=== PATIENT | male | born 1960 | race African-American/Black ===

== ENCOUNTER 2018-01-14 18:03 | Inpatient (IN) | payer OTHER ==
[~2018-01-14] VITALS: Ht 175.3 cm; Wt 56.8 kg
--- NOTE | 2018-01-14 18:27 | Emergency Room Report ---
History of Present Illness General Chief Complaint: Dyspnea/Respdistress Source: Patient Present Illness HPI Patient is a 57-year-old male brought in by EMS after increased generalized weakness and shortness of breath. No gradual onset of symptoms. Patient prior history of diabetes. Patient had been noted having increased difficulty with respirations. Patient was started on supplemental oxygen by EMS. Patient had been noted to have a crack pipe near his person by EMS. History is limited by patient's mental status Allergies: Coded Allergies: No Known Allergies (Unverified , 01/14/18) Patient History Past Medical History: see triage record Reviewed Nursing Documentation: PMH: Agreed, PSxH: Agreed Nursing Documentation-PMH Past Medical History: No History, Except For Hx Diabetes: Yes Review of Systems All Other Systems: limited - by mental status Physical Exam Vital Signs Date Time Temp Pulse Resp B/P (MAP) Pulse Ox O2 Delivery O2 Flow Rate FiO2 01/14/18 17:52 98.1 78 18 149/86 95 Nasal Cannula 4.0 98.1 General Appearance: lethargic, Chronically Ill ENT: normal voice Neck: limited range of motion Respiratory: respiratory distress, crackles Cardiovascular #1: normal peripheral pulses, regular rate, rhythm, edema Gastrointestinal: normal bowel sounds, non tender, soft Musculoskeletal: normal inspection Neurologic: alert, oriented x3, radioisotope technologist III-XII nml as tested Procedures Critical Care Time Critical Care Time Patient had a critical medical condition which untreated could potentially result in life or limb threatening injury. Total critical care time excluding procedures approximately 45 minutes. Medical Decision Making Diagnostic Impression: Primary Impression: CHF exacerbation Additional Impressions: NSTEMI (non-ST elevated myocardial infarction) Substance abuse Pneumonia ER Course Patient presented with shortness of breath.Differential included but was not limited to anemia, pneumonia, pneumothorax, myocardial infarction, pericardial effusion, congestive heart failure, acidosis. Because of complexity of patient' s case laboratory testing and imaging studies were ordered.Chest x-ray 1 view interpreted by me showed multiple pulmonary infiltrates without evident effusion. A study showed evidence of Elevated troponin consistent with non-STEMI. Patient was given antibiotics. Patient was noted to have what appear to be congestive heart failure and fluid overload and was given IV Lasix. Dr. Leo was contacted for inpatient management due to complexity of medical condition. Labs Test 01/14/18 18:21 01/14/18 18:50 Arterial Blood pH 7.540 (7.350-7.450) Arterial Blood Partial Pressure CO2 39.2 mmHg (35.0-45.0) Arterial Blood Partial Pressure O2 102.4 mmHg (75.0-100.0) Arterial Blood HCO3 32.8 mmol/L (22.0-26.0) Arterial Blood Oxygen Saturation 97.5 % (92.0-98.0) Arterial Blood Base Excess 9.5 Kody Test Positive White Blood Count 9.5 K/UL (4.8-10.8) Red Blood Count 4.00 M/UL (4.70-6.10) Hemoglobin 12.2 G/DL (14.2-18.0) Hematocrit 36.5 % (42.0-52.0) Mean Corpuscular Volume 91 FL (80-99) Mean Corpuscular Hemoglobin 30.4 PG (27.0-31.0) Mean Corpuscular Hemoglobin Concent 33.2 G/DL (32.0-36.0) Red Cell Distribution Width 11.5 % (11.6-14.8) Platelet Count 308 K/UL (150-450) Mean Platelet Volume 7.6 FL (6.5-10.1) Neutrophils (%) (Auto) % (45.0-75.0) Lymphocytes (%) (Auto) % (20.0-45.0) Monocytes (%) (Auto) % (1.0-10.0) Eosinophils (%) (Auto) % (0.0-3.0) Basophils (%) (Auto) % (0.0-2.0) Differential Total Cells Counted 100 Neutrophils % (Manual) 72 % (45-75) Lymphocytes % (Manual) 8 % (20-45) Monocytes % (Manual) 7 % (1-10) Eosinophils % (Manual) 0 % (0-3) Basophils % (Manual) 0 % (0-2) Band Neutrophils 13 % (0-8) Platelet Estimate Adequate Platelet Morphology Normal Hypochromasia 1+ Anisocytosis 1+ Sodium Level 133 MMOL/L (136-145) Potassium Level 3.7 MMOL/L (3.5-5.1) Chloride Level 90 MMOL/L (98-107) Carbon Dioxide Level 36 MMOL/L (21-32) Anion Gap 7 mmol/L (5-15) Blood Urea Nitrogen 52 mg/dL (7-18) Creatinine 1.3 MG/DL (0.55-1.30) Estimat Glomerular Filtration Rate 57.1 mL/min (>60) Glucose Level 506 MG/DL (74-106) Lactic Acid Level 2.30 mmol/L (0.66-2.22) Calcium Level 9.1 MG/DL (8.5-10.1) Phosphorus Level 5.4 MG/DL (2.5-4.9) Magnesium Level 1.7 MG/DL (1.8-2.4) Total Bilirubin 0.8 MG/DL (0.2-1.0) Aspartate Amino Transf (AST/SGOT) 34 U/L (15-37) Alanine Aminotransferase (ALT/SGPT) 29 U/L (12-78) Alkaline Phosphatase 203 U/L (46-116) Total Creatine Kinase 148 U/L (26-308) Creatine Kinase MB 2.3 NG/ML (0.0-3.6) Creatine Kinase MB Relative Index 1.5 Troponin I 0.811 ng/mL (0.000-0.056) Pro-B-Type Natriuretic Peptide 4234 pg/mL (0-125) Total Protein 7.2 G/DL (6.4-8.2) Albumin 1.7 G/DL (3.4-5.0) Globulin 5.5 g/dL Albumin/Globulin Ratio 0.3 (1.0-2.7) EKG Diagnostic Results Rate: normal Rhythm: NSR ST Segments: no acute changes Rhythm Strip Diag. Results EP Interpretation: yes Rhythm: NSR, no PVC's, no ectopy, other Last Vital Signs Date Time Temp Pulse Resp B/P (MAP) Pulse Ox O2 Delivery O2 Flow Rate FiO2 01/14/18 17:52 98.1 78 18 149/86 95 Nasal Cannula 4.0 98.1 Status: unchanged Disposition: ADMITTED INPATIENT Condition: David Phan Jan 14, 2018 18:26
[2018-01-14 19:13] LABS: HEMATOCRIT 36.5 % (42.0-52.0); HEMOGLOBIN 12.2 G/DL (14.2-18.0); MEAN CORPUSCULAR VOLUME 91 FL (80-99); PLATELET COUNT 308 K/UL (150-450); RED CELL DISTRIBUTION WIDTH 11.5 % (11.6-14.8); WHITE BLOOD COUNT 9.5 K/UL (4.8-10.8)
[2018-01-14 19:15] VITALS: BP 156/98
[2018-01-14] MEDS ORDERED: Ampicillin/Sulbactam Sod 3 GM in NS 110 ML IVPB ONE (19:15)
[2018-01-14] MEDS ORDERED: Unasyn 3gm Inj ONE (19:39)
[2018-01-14 19:42] LABS: ALANINE AMINOTRANSFERASE 29 U/L (12-78); ALBUMIN 1.7 G/DL (3.4-5.0); ALBUMIN/GLOBULIN RATIO 0.3 (1.0-2.7); ALKALINE PHOSPHATASE 203 U/L (46-116); ANION GAP 7 mmol/L (5-15); ASPARTATE AMINO TRANSFERASE 34 U/L (15-37); BILIRUBIN,TOTAL 0.8 MG/DL (0.2-1.0); BLOOD UREA NITROGEN 52 mg/dL (7-18); CALCIUM 9.1 MG/DL (8.5-10.1); CARBON DIOXIDE 36 MMOL/L (21-32); CHLORIDE 90 MMOL/L (98-107); CKMB 2.3 NG/ML (0.0-3.6); CREATINE KINASE 148 U/L (26-308); CREATININE 1.3 MG/DL (0.55-1.30); PHOSPHORUS 5.4 MG/DL (2.5-4.9); POTASSIUM 3.7 MMOL/L (3.5-5.1); SODIUM 133 MMOL/L (136-145)
[2018-01-14 19:51] VITALS: BP 135/84
[2018-01-14] MEDS ORDERED: UNOBMED (20:44)
[2018-01-14] MEDS ORDERED: IBUPROFEN600 MG ORAL (21:13)
[2018-01-14] MEDS ORDERED: GABAPENTIN300 MG ORAL (21:13)
[2018-01-14] MEDS ORDERED: ZOCOR20 M1 ORAL (21:13)
[2018-01-14] MEDS ORDERED: BACLOFEN10 MG ORAL (21:13)
[2018-01-14] MEDS ORDERED: LISINOPRIL5 MG ORAL (21:13)
[2018-01-14] MEDS ORDERED: METFORMIN HCL1000 M1 ORAL (21:13)
[2018-01-14] MEDS ORDERED: Clindamycin 600mg 50 ML IVPB ONE (21:30)
[2018-01-14] MEDS: Aspirin EC 325mg tab ORAL SCH ×2 (21:39→22:10)
[2018-01-14 21:50] VITALS: BP 158/84
[2018-01-14 22:22] VITALS: BP 153/97
[2018-01-14 23:00] VITALS: BP 137/86
[2018-01-15] VITALS (24 sets, daily range): BP systolic 89–138; BP diastolic 50–84
[2018-01-15 05:12] LABS: APPEARANCE,URINE CLOUDY; BILIRUBIN, URINE 1+ (NEGATIVE); COLOR,URINE BROWN; GLUCOSE, URINE (UA) 4+ (NEGATIVE); KETONES,URINE 1+ (NEGATIVE); LEUKOCYTE ESTERASE ,URINE 1+ (NEGATIVE); NITRITE,URINE NEGATIVE (NEGATIVE); PH,URINE 5 (4.5-8.0); PROTEIN,URINE 2+ (NEGATIVE); UROBILINOGEN,URINE 4 MG/DL (0.0-1.0)
[2018-01-15 05:19] LABS: BASOPHILS % (AUTO) 0.5 % (0.0-2.0); HEMATOCRIT 31.4 % (42.0-52.0); HEMOGLOBIN 10.7 G/DL (14.2-18.0); LYMPHOCYTES % (AUTO) 8.9 % (20.0-45.0); MEAN CORPUSCULAR VOLUME 91 FL (80-99); MONOCYTES % (AUTO) 5.8 % (1.0-10.0); NEUTROPHILS % (AUTO) 84.8 % (45.0-75.0); PLATELET COUNT 270 K/UL (150-450); RED BLOOD COUNT 3.47 M/UL (4.70-6.10)
[2018-01-15 05:45] LABS: ANION GAP 7 mmol/L (5-15); BLOOD UREA NITROGEN 52 mg/dL (7-18); CALCIUM 8.7 MG/DL (8.5-10.1); CARBON DIOXIDE 38 MMOL/L (21-32); CHLORIDE 93 MMOL/L (98-107); CREATININE 1.1 MG/DL (0.55-1.30); POTASSIUM 2.9 MMOL/L (3.5-5.1); SODIUM 138 MMOL/L (136-145)
[2018-01-15] MEDS ORDERED: Albuterol/Ipratropium 3ml neb HHN PRN (06:30)
[2018-01-15] MEDS ORDERED: Morphine Sulfate 4mg/ml Inj IVP PRN (06:30)
[2018-01-15] MEDS ORDERED: Promethazine/Codeine 5ml UD ORAL PRN (06:30)
[2018-01-15] MEDS ORDERED: Miralax 17gm pkt ORAL PRN (06:30)
[2018-01-15] MEDS: NovoLOG Insulin Flexpen SUBQ SCH ×4 (06:40→20:25)
--- NOTE | 2018-01-15 07:40 | History and Physical ---
History of Present Illness General Date patient seen: Jan 15, 2018 Reason for Hospitalization: Dyspnea/Respdistress Present Illness HPI 57-year-old male with hx of DM brought in by EMS with CC of increased generalized weakness and shortness of breath. Patient was started on supplemental oxygen by EMS. Patient had been noted to have a crack pipe near his person by EMS. History is limited by patient's mental status. Pt was found to have increased Blood sugar. He was hypoxemic as well. He was put on BIPAP and admitted to ICU. Pt can't give any history and all information is obtained from the chart. Allergies: Coded Allergies: No Known Allergies (Unverified , 01/14/18) Medication History Scheduled Baclofen* (Baclofen*), 10 MG ORAL THREE TIMES A DAY, (Reported) Gabapentin* (Gabapentin*), 300 MG ORAL BEDTIME, (Reported) Lisinopril (Lisinopril*), 5 MG ORAL DAILY, (Reported) Metformin Hcl* (Metformin Hcl*), 1,000 MG ORAL DAILY, (Reported) Simvastatin (Zocor), 20 MG ORAL BEDTIME, (Reported) Scheduled PRN Ibuprofen* (Motrin*), 600 MG ORAL Q8H PRN for For Pain, (Reported) Miscellaneous Medications Unable to Obtain Medications (Unable To Obtain Meds), (Reported) Patient History Healthcare decision maker Resuscitation status Full Code Advanced Directive on File No Past Medical/Surgical History Past Medical/Surgical History: (1) Diabetes mellitus Review of Systems All Other Systems: negative except mentioned in HPI Physical Exam General Appearance: cachetic Lines, tubes and drains: peripheral HEENT: normocephalic, atraumatic Neck: non-tender, normal alignment Respiratory/Chest: chest wall non-tender, lungs clear Cardiovascular/Chest: normal peripheral pulses, normal rate Abdomen: normal bowel sounds, non tender Genitourinary/Rectal: normal genital exam Extremities: normal range of motion Skin Exam: normal pigmentation Neurologic: veterinary laboratory technician II-XII grossly normal Lymphatic: supraclavicular (L) Last 24 Hour Vital Signs Date Time Temp Pulse Resp B/P (MAP) Pulse Ox O2 Delivery O2 Flow Rate FiO2 01/15/18 07:16 55 01/15/18 07:00 89 26 97/63 100 Bi-pap 100 01/15/18 06:52 92 28 100 Facial 100 01/15/18 06:52 100 Bi-pap 100 01/15/18 06:00 90 26 96/61 100 Bi-pap 100 01/15/18 05:00 98.7 92 32 95/65 100 Bi-pap 100 98.7 01/15/18 05:00 91 21 100 Facial 100 01/15/18 04:00 93 30 94/67 100 Bi-pap 100 01/15/18 04:00 94 01/15/18 03:15 94 22 98 Facial 100 01/15/18 03:00 94 20 95/64 100 Bi-pap 100 01/15/18 02:00 99 20 138/84 100 Bi-pap 100 01/15/18 01:20 95 24 100 Facial 100 01/15/18 01:00 97.7 95 22 109/72 100 Bi-pap 100 97.7 01/15/18 00:01 99 24 98 Facial 100 01/15/18 00:00 97 24 105/65 100 Bi-pap 100 01/15/18 00:00 100 01/15/18 00:00 90 01/14/18 23:10 99 Venturi Mask 12.0 50 01/14/18 23:10 Venturi Mask 12.0 50 01/14/18 23:00 104 24 137/86 100 Non-Rebreather 15.0 01/14/18 22:52 98.0 99 24 153/97 100 Non-Rebreather 15.0 98.0 01/14/18 22:22 98.0 99 24 153/97 100 Non-Rebreather 15.0 98.0 01/14/18 21:50 98.1 100 22 158/84 100 Non-Rebreather 15.0 98.1 01/14/18 19:51 98.1 105 30 135/84 100 Non-Rebreather 15.0 98.1 01/14/18 19:15 105 30 156/98 100 Non-Rebreather 15.0 01/14/18 19:15 105 30 Non-Rebreather 15.0 01/14/18 17:52 98.1 78 18 149/86 95 Nasal Cannula 4.0 98.1 Intake and Output 01/14/18 01/15/18 19:00 07:00 Intake Total 160 ml Output Total 790 ml Balance -630 ml Intake Oral 0 ml IV Total 160 ml Other 0 ml Output Urine Total 790 ml Laboratory Tests Test 01/14/18 18:21 01/14/18 18:50 01/14/18 21:02 01/14/18 23:28 Arterial Blood pH 7.540 (7.350-7.450) 7.511 (7.350-7.450) Arterial Blood Partial Pressure CO2 39.2 mmHg (35.0-45.0) 46.7 mmHg (35.0-45.0) H Arterial Blood Partial Pressure O2 102.4 mmHg (75.0-100.0) H 63.0 mmHg (75.0-100.0) L Arterial Blood HCO3 32.8 mmol/L (22.0-26.0) H 36.5 mmol/L (22.0-26.0) H Arterial Blood Oxygen Saturation 97.5 % (92.0-98.0) 91.8 % (92.0-98.0) L Arterial Blood Base Excess 9.5 12.1 Kody Test Positive Positive White Blood Count 9.5 K/UL (4.8-10.8) Red Blood Count 4.00 M/UL (4.70-6.10) L Hemoglobin 12.2 G/DL (14.2-18.0) L Hematocrit 36.5 % (42.0-52.0) L Mean Corpuscular Volume 91 FL (80-99) Mean Corpuscular Hemoglobin 30.4 PG (27.0-31.0) Mean Corpuscular Hemoglobin Concent 33.2 G/DL (32.0-36.0) Red Cell Distribution Width 11.5 % (11.6-14.8) L Platelet Count 308 K/UL (150-450) Mean Platelet Volume 7.6 FL (6.5-10.1) Neutrophils (%) (Auto) % (45.0-75.0) Lymphocytes (%) (Auto) % (20.0-45.0) Monocytes (%) (Auto) % (1.0-10.0) Eosinophils (%) (Auto) % (0.0-3.0) Basophils (%) (Auto) % (0.0-2.0) Differential Total Cells Counted 100 Neutrophils % (Manual) 72 % (45-75) Lymphocytes % (Manual) 8 % (20-45) L Monocytes % (Manual) 7 % (1-10) Eosinophils % (Manual) 0 % (0-3) Basophils % (Manual) 0 % (0-2) Band Neutrophils 13 % (0-8) H Platelet Estimate Adequate Platelet Morphology Normal Hypochromasia 1+ Anisocytosis 1+ Sodium Level 133 MMOL/L (136-145) L Potassium Level 3.7 MMOL/L (3.5-5.1) Chloride Level 90 MMOL/L (98-107) L Carbon Dioxide Level 36 MMOL/L (21-32) H Anion Gap 7 mmol/L (5-15) Blood Urea Nitrogen 52 mg/dL (7-18) H Creatinine 1.3 MG/DL (0.55-1.30) Estimat Glomerular Filtration Rate 57.1 mL/min (>60) Glucose Level 506 MG/DL (74-106) *H Lactic Acid Level 2.30 mmol/L (0.66-2.22) H 2.10 mmol/L (0.66-2.22) Calcium Level 9.1 MG/DL (8.5-10.1) Phosphorus Level 5.4 MG/DL (2.5-4.9) H Magnesium Level 1.7 MG/DL (1.8-2.4) L Total Bilirubin 0.8 MG/DL (0.2-1.0) Aspartate Amino Transf (AST/SGOT) 34 U/L (15-37) Alanine Aminotransferase (ALT/SGPT) 29 U/L (12-78) Alkaline Phosphatase 203 U/L (46-116) H Total Creatine Kinase 148 U/L (26-308) Creatine Kinase MB 2.3 NG/ML (0.0-3.6) Creatine Kinase MB Relative Index 1.5 Troponin I 0.811 ng/mL (0.000-0.056) Pro-B-Type Natriuretic Peptide 4234 pg/mL (0-125) H Total Protein 7.2 G/DL (6.4-8.2) Albumin 1.7 G/DL (3.4-5.0) L Globulin 5.5 g/dL Albumin/Globulin Ratio 0.3 (1.0-2.7) L Test 01/15/18 02:50 01/15/18 03:15 01/15/18 04:00 Urine Color Brown Urine Appearance Cloudy Urine pH 5 (4.5-8.0) Urine Specific Cobb 1.020 (1.005-1.035) Urine Protein 2+ (NEGATIVE) H Urine Glucose (UA) 4+ (NEGATIVE) H Urine Ketones 1+ (NEGATIVE) H Urine Occult Blood 1+ (NEGATIVE) H Urine Nitrite Negative (NEGATIVE) Urine Bilirubin 1+ (NEGATIVE) H Urine Ictotest Negative Urine Urobilinogen 4 MG/DL (0.0-1.0) H Urine Leukocyte Esterase 1+ (NEGATIVE) H Urine RBC 2-4 /HPF (0 - 0) H Urine WBC 15-20 /HPF (0 - 0) H Urine Squamous Epithelial Cells Few /LPF (NONE/OCC) Urine Amorphous Sediment Few /LPF (NONE) H Urine Bacteria Few /HPF (NONE) Urine Hyaline Casts 15-20 /LPF (NONE) H Urine Mucus Many /LPF (NONE/OCC) H White Blood Count 10.0 K/UL (4.8-10.8) Red Blood Count 3.47 M/UL (4.70-6.10) L Hemoglobin 10.7 G/DL (14.2-18.0) L Hematocrit 31.4 % (42.0-52.0) L Mean Corpuscular Volume 91 FL (80-99) Mean Corpuscular Hemoglobin 30.8 PG (27.0-31.0) Mean Corpuscular Hemoglobin Concent 34.0 G/DL (32.0-36.0) Red Cell Distribution Width 11.0 % (11.6-14.8) L Platelet Count 270 K/UL (150-450) Mean Platelet Volume 7.5 FL (6.5-10.1) Neutrophils (%) (Auto) 84.8 % (45.0-75.0) H Lymphocytes (%) (Auto) 8.9 % (20.0-45.0) L Monocytes (%) (Auto) 5.8 % (1.0-10.0) Eosinophils (%) (Auto) 0.0 % (0.0-3.0) Basophils (%) (Auto) 0.5 % (0.0-2.0) Sodium Level 138 MMOL/L (136-145) Potassium Level 2.9 MMOL/L (3.5-5.1) L Chloride Level 93 MMOL/L (98-107) L Carbon Dioxide Level 38 MMOL/L (21-32) H Anion Gap 7 mmol/L (5-15) Blood Urea Nitrogen 52 mg/dL (7-18) H Creatinine 1.1 MG/DL (0.55-1.30) Estimat Glomerular Filtration Rate > 60 mL/min (>60) Glucose Level 312 MG/DL (74-106) #H Lactic Acid Level 4.40 mmol/L (0.66-2.22) H Calcium Level 8.7 MG/DL (8.5-10.1) Troponin I 0.499 ng/mL (0.000-0.056) Pro-B-Type Natriuretic Peptide 3479 pg/mL (0-125) H Arterial Blood pH 7.600 (7.350-7.450) Arterial Blood Partial Pressure CO2 37.7 mmHg (35.0-45.0) Arterial Blood Partial Pressure O2 243.5 mmHg (75.0-100.0) H Arterial Blood HCO3 36.5 mmol/L (22.0-26.0) H Arterial Blood Oxygen Saturation 99.1 % (92.0-98.0) H Arterial Blood Base Excess 14.0 Kody Test Positive Height (Feet): 5 Height (Inches): 9.00 Weight (Pounds): 123 Medications Current Medications Medications (Trade) Dose Ordered Sig/Ely Route PRN Reason Start Time Stop Time Status Last Admin Dose Admin Acetaminophen (Tylenol) 650 mg Q4H PRN ORAL FEVER 01/15/18 06:30 02/14/18 06:29 Albuterol/ Ipratropium (Albuterol/ Ipratropium) 3 ml Q4H PRN HHN Shortness of Breath 01/15/18 06:30 01/20/18 06:29 Aspirin (Ecotrin) 325 mg DAILY ORAL 01/14/18 21:30 02/13/18 21:29 01/14/18 21:39 Cefepime HCl 2 gm/ Dextrose 110 ml @ 220 mls/hr EVERY 12 HOURS IV 01/15/18 09:00 01/22/18 08:59 Dextrose (Dextrose 50%) STAT PRN IV Hypoglycemia 01/15/18 06:30 02/14/18 06:29 Heparin Sodium (Porcine) (Heparin 5000 units/ml) 5,000 units EVERY 12 HOURS SUBQ 01/15/18 09:00 02/14/18 08:59 Ibuprofen (Advil) 600 mg Q8H PRN ORAL For Pain 01/15/18 06:30 02/14/18 06:29 UNV Insulin Aspart (NovoLOG) BEFORE MEALS AND HS SUBQ 01/15/18 06:30 02/14/18 06:29 01/15/18 06:40 Lorazepam (Ativan 2mg/ml 1ml) 2 mg Q2H PRN IV For Anxiety 01/15/18 06:30 01/22/18 06:29 Morphine Sulfate (Morphine Sulfate) 4 mg Q4H PRN IVP Severe Pain (Pain Scale 7-10) 01/15/18 06:30 01/22/18 06:29 Ondansetron HCl (Zofran) 4 mg Q6H PRN IVP Nausea & Vomiting 01/15/18 06:30 02/14/18 06:29 Polyethylene Glycol (Miralax) 17 gm DAILYPRN PRN ORAL Constipation 01/15/18 06:30 02/14/18 06:29 Promethazine HCl/ Codeine (Phenergan with Codeine) 5 ml Q4H PRN ORAL For Cough 01/15/18 06:30 02/14/18 06:29 Sodium Chloride 1,000 ml @ 50 mls/hr Q20H IV 01/15/18 07:00 02/14/18 06:59 01/15/18 06:39 Vancomycin HCl (Vanco rx to dose) 1 ea DAILY PRN MISC per protocol 01/15/18 06:45 02/14/18 06:44 Vancomycin/Sodium Chloride 250 ml @ 166.636 mls/hr Q12HR IVPB 01/15/18 09:00 01/20/18 08:59 Vitamin A/Vitamin D (A & D Oint) 1 applic EVERY 12 HOURS TOPIC 01/15/18 09:00 02/14/18 08:59 UNV Assessment/Plan Problem List: (1) Acute respiratory failure ICD Codes: J96.00 - Acute respiratory failure, unspecified whether with hypoxia or hypercapnia SNOMED: 51599100 (2) Pneumonia ICD Codes: J18.9 - Pneumonia, unspecified organism SNOMED: 690372697 (3) Uncontrolled diabetes mellitus ICD Codes: E11.65 - Type 2 diabetes mellitus with hyperglycemia SNOMED: 74369417, 627845204 Assessment/Plan respiratory isolation check sputum ppd TB gold iv abx sliding scale neuro and ID evaluation dvt prophylaxis anemia w/u THANH LEVI Jan 15, 2018 07:40
--- NOTE | 2018-01-15 08:41 | Consultation ---
Consult Note Consult Note Patient is a 57-year-old male brought in by EMS after increased generalized weakness and shortness of breath. No gradual onset of symptoms. Patient prior history of diabetes. Patient had been noted having increased difficulty with respirations. Patient was started on supplemental oxygen by EMS. Patient had been noted to have a crack pipe near his person by EMS. History is limited by patient's mental status examined- data reviewed- discussed with quality control assistant/Plan Hypotension- Urinary retention Renal failure- Proteinuria Respiratory distress Pneumonia DMM OOC Anemia HypoAlbuminemia CHF elevated troponin I Optimize cardiac and pulm status 2D eco monitor renal parameters and lytes per orders MARLY KENNEDY Jan 15, 2018 08:41
[2018-01-15] MEDS ORDERED: PPD Tuberculin Skin Test 5TU IDERMAL ONE (09:00)
[2018-01-15] MEDS ORDERED: Aspirin EC 325mg tab ORAL SCH (09:00)
[2018-01-15] MEDS ORDERED: Vancomycin 750mg/NS 250ml 250 ML IVPB SCH (09:00)
[2018-01-15] MEDS: Vitamin A&D Oint 2oz Tube TOPIC SCH ×2 (09:30→20:22)
[2018-01-15] MEDS: Cefepime HCl 2 GM in NS 110 ML IV SCH ×2 (09:30→21:00)
[2018-01-15] MEDS: D5NS 1,000 ML IV SCH (09:45)
--- NOTE | 2018-01-15 09:47 | Diagnostic Imaging Report ---
Indication: Shortness of breath Technique: XRAY Chest 1v Comparison: None Findings: Cardiomediastinal silhouette is within normal limits. Atherosclerotic changes are seen. Patchy pulmonary infiltrates are noted bilaterally. Osseous structures demonstrate no acute abnormality. Impression: Patchy bilateral pulmonary infiltrates. Clinical correlation/follow-up recommended.
[2018-01-15] MEDS: Heparin 5000 units/ml inj SUBQ SCH ×2 (09:55→20:24)
[2018-01-15 10:04] LABS: HEMATOCRIT 32.1 % (42.0-52.0); HEMOGLOBIN 10.9 G/DL (14.2-18.0); MEAN CORPUSCULAR VOLUME 90 FL (80-99); PLATELET COUNT 255 K/UL (150-450); RED BLOOD COUNT 3.56 M/UL (4.70-6.10); RED CELL DISTRIBUTION WIDTH 11.3 % (11.6-14.8); WHITE BLOOD COUNT 10.3 K/UL (4.8-10.8)
--- NOTE | 2018-01-15 10:29 | Diagnostic Imaging Report ---
Indication: Shortness of breath Technique: XRAY Chest 1v Comparison: 01/14/2018 Findings: Cardiomediastinal silhouette is stable. Bilateral lung infiltrates are again noted. Osseous structures are stable. Impression: No significant change from 01/14/2018.
--- NOTE | 2018-01-15 19:32 | Consultation ---
Consult Note Consult Note [id number] A: pt was placed in Airborne Iso ro TB ( wt loss and ? Hx of TB Exposure in the past ) P: sputum : AFB x 3 , MTB -PCR T ANU Ramos M.D. Jan 15, 2018 19:31
[2018-01-15 20:20] LABS: ALANINE AMINOTRANSFERASE 28 U/L (12-78); ALBUMIN 1.6 G/DL (3.4-5.0); ALKALINE PHOSPHATASE 167 U/L (46-116); ASPARTATE AMINO TRANSFERASE 39 U/L (15-37); BILIRUBIN,DIRECT 0.2 MG/DL (0.0-0.3); BILIRUBIN,TOTAL 0.4 MG/DL (0.2-1.0)
[2018-01-15] MEDS: LORazepam Inj 2mg/ml 1ml IV PRN (20:22)
[2018-01-15] MEDS: Vancomycin 1gm in D5W 275ml IVPB SCH (20:25)
[2018-01-15] MEDS: Azithromycin 500 MG in D5W 275 ML IV SCH (21:00)
--- NOTE | 2018-01-15 22:45 | Consultation ---
DATE OF CONSULTATION: 01/15/2018 INFECTIOUS DISEASE CONSULTATION CONSULTING PHYSICIAN: Edmond Brink M.D. REFERRING PHYSICIAN: Ariana Leo M.D. REASON FOR CONSULTATION: Evaluation of the patient for sepsis, pneumonia, possible TB. HISTORY OF PRESENT ILLNESS: The patient is a 57-year-old male with multiple medical problems as listed below, who was admitted to this medical center because of general weakness, shortness of breath. The patient was found to have uncontrolled diabetes. The patient is poor historian and not the details of his condition is completely clear. Apparently, the patient is a drug user, who was brought to the hospital because of the weakness. The patient has history of weight loss. In the past, the patient has some sort of exposure to case of tuberculosis according to family, however, the patient himself denies that. The patient has been placed in isolation room for possible tuberculosis. An Infectious Disease consultation has been requested for further evaluation of the patient's antibiotic management. PAST MEDICAL HISTORY: 1. Hypertension. 2. Diabetes. 3. History of substance abuse (? if the patient is an IV drug abuser). 4. History of CHF. ALLERGIES: No known drug allergies. SOCIAL HISTORY: The patient from time to time is homeless. The patient is drug abuser. FAMILY HISTORY: Not contributing. MEDICATIONS: Vancomycin and cefepime. PHYSICAL EXAMINATION: VITAL SIGNS: Temperature 98, respiratory rate 18, blood pressure 113/70, pulse 86. HEENT: Mouth, no thrush. NECK: No lymphadenopathy. CHEST: Coarse breathing sounds. HEART: S1, S2. ABDOMEN: Soft, nontender. EXTREMITIES: No cyanosis at this time. NEUROLOGIC: Awake and lethargic. SKIN: The patient has multiple decubitus in the lower back, sacral area, not grossly infected. MEDICATIONS: On cefepime and vancomycin. LABORATORY DATA: White blood cells 10, hemoglobin 10.9, platelets 255,000. UA, 15 to 20 white blood cells and 2 to 4 red blood cells. Lactic acid 2.7. CRP over 70. BUN 52, creatinine 1.2. Troponin 0.49. BNP 3479. Alkaline phosphatase 203. Chest x-ray, cardiomegaly and bilateral lung infiltrates. ASSESSMENT: 1. The patient is a 57-year-old male with history of drug abuse. 2. Uncontrolled diabetes. 3. Weight loss. 4. Rule out HIV. 5. Sepsis. 6. Lactic acidosis. 7. Transaminitis. 8. Positive cardiac enzymes. 9. Community-acquired pneumonia 10. ? TB ( weight loss , history of TB exposure in the past , was placed in Isolation by PCP ) PLAN: 1. We will continue the patient on vancomycin and cefepime. 2. We will add Zithromax. 3. Monitor CBC. 4. Monitor BMP. 5. Monitor sputum, blood, and urine culture. 6. Ultrasound of the abdomen. 7. Hepatitis C panel. 8. HIV screening. 9. Based on the patient's clinical course and laboratories, we will do further recommendations. 10. sputum : AFB x 3 , MTB -PCR and T Spot Thank you, Dr. Leo, for allowing me to participate in the care of this patient. I will follow the patient with you during this hospitalization. Edmond Brink M.D. DR: Angel JOB#: [id number] CC: CINTIA
--- NOTE | 2018-01-15 23:14 | Wound Care Consultation ---
Wound Assessment Wound Assessment #1: Wound Number: 1 Wound Present on Admission: Yes New Wound: No Status Change of Wound: No Wound Location Body Site: perineal area Wound Type: chemical burn Burt Test: Does not Burt Percent of Wound [place]/Red: 100 Wound Drainage Amount: None Wound Drainage Odor: None/Absent Tissue Surrounding Wound: Erythemic Wound General Appearance: Reddened Wound Assessment #2: Wound Number: 2 Wound Present on Admission: Yes New Wound: No Status Change of Wound: No Wound Location Body Site Modif: left Wound Location Body Site: ischial tuberosity Wound Type: pressure ulcer Burt Test: Does not Burt Pressure Ulcer Stage: Deep Tissue Injury Wound Thickness: Full Thickness Wound Length: 4.0 Wound Width: 4.0 Wound Depth: utd Percent of Wound Purple/Maroon: 100 Wound Drainage Amount: None Wound Drainage Odor: None/Absent Tissue Surrounding Wound: Intact Wound General Appearance: Reddened - maroon Wound Assessment #3: Wound Number: 3 Wound Present on Admission: Yes New Wound: No Status Change of Wound: No Wound Location Body Site Modif: right Wound Location Body Site: ischial tuberosity Wound Type: pressure ulcer Burt Test: Does not Burt Pressure Ulcer Stage: Deep Tissue Injury Wound Thickness: Full Thickness Wound Length: 4.0 Wound Width: 4.0 Wound Depth: utd Percent of Wound Purple/Maroon: 100 Wound Drainage Amount: None Wound Drainage Odor: None/Absent Tissue Surrounding Wound: Erythemic Wound General Appearance: Reddened - maroon Wound Assessment #4: Wound Number: 4 Wound Present on Admission: Yes New Wound: No Status Change of Wound: No Wound Location Body Site Modif: mid Wound Location Body Site: other - sacrococcygeal Wound Type: pressure ulcer Burt Test: Does not Burt Pressure Ulcer Stage: Deep Tissue Injury Wound Thickness: Full Thickness Wound Length: 5.5 Wound Width: 5.5 Wound Depth: utd Percent of Wound Purple/Maroon: 100 Wound Drainage Amount: None Wound Drainage Odor: None/Absent Tissue Surrounding Wound: Erythemic Wound General Appearance: Reddened - maroon Wound Assessment #5: Wound Number: 5 Wound Present on Admission: Yes New Wound: No Status Change of Wound: No Wound Location Body Site Modif: left Wound Location Body Site: buttocks Wound Type: pressure ulcer Burt Test: Does not Burt Pressure Ulcer Stage: Deep Tissue Injury Wound Thickness: Full Thickness Wound Length: 3.5 Wound Width: 3.5 Wound Depth: utd Percent of Wound Purple/Maroon: 100 Wound Drainage Amount: None Wound Drainage Odor: None/Absent Tissue Surrounding Wound: Intact Wound General Appearance: Reddened - maroon Wound Assessment #6: Wound Number: 6 Wound Present on Admission: Yes New Wound: No Status Change of Wound: No Wound Location Body Site Modif: right Wound Location Body Site: buttocks Wound Type: pressure ulcer Burt Test: Does not Burt Pressure Ulcer Stage: Deep Tissue Injury Wound Thickness: Full Thickness Wound Length: 3.5 Wound Width: 3.5 Wound Depth: utd Percent of Wound Purple/Maroon: 100 Wound Drainage Amount: None Wound Drainage Odor: None/Absent Tissue Surrounding Wound: Erythemic Wound General Appearance: Reddened - maroon Wound Assessment #7: Wound Number: 7 Wound Present on Admission: Yes New Wound: No Status Change of Wound: No Wound Location Body Site Modif: right Wound Location Body Site: elbow Wound Type: pressure ulcer Burt Test: Does not Burt Pressure Ulcer Stage: Deep Tissue Injury Wound Thickness: Full Thickness Wound Length: 4.0 Wound Width: 3.0 Wound Depth: utd Percent of Wound Purple/Maroon: 100 Wound Drainage Amount: None Wound Drainage Odor: None/Absent Tissue Surrounding Wound: Intact Wound General Appearance: Reddened - maroon Wound Assessment #8: Wound Number: 8 Wound Present on Admission: Yes New Wound: No Status Change of Wound: No Wound Location Body Site Modif: left Wound Location Body Site: elbow Wound Type: pressure ulcer Burt Test: Does not Burt Pressure Ulcer Stage: Deep Tissue Injury Wound Thickness: Full Thickness Wound Length: 4.0 Wound Width: 3.0 Wound Depth: utd Percent of Wound Purple/Maroon: 100 Wound Drainage Amount: None Wound Drainage Odor: None/Absent Tissue Surrounding Wound: Erythemic Wound General Appearance: Reddened - maroon Wound Assessment #9: Wound Number: 9 Wound Present on Admission: Yes New Wound: No Status Change of Wound: No Wound Location Body Site Modif: right Wound Location Body Site: heel Wound Type: pressure ulcer Burt Test: Does not Burt Pressure Ulcer Stage: Deep Tissue Injury - SDTI Wound Thickness: Full Thickness Wound Length: 4.5 Wound Width: 3.0 Wound Depth: utd Percent of Wound [place]/Red: 100 - DEEP Wound Drainage Amount: None Wound Drainage Odor: None/Absent Tissue Surrounding Wound: Erythemic Wound General Appearance: Reddened - DEEP red Wound Assessment #10: Wound Number: 10 Wound Present on Admission: Yes New Wound: No Status Change of Wound: No Wound Location Body Site Modif: mid Wound Location Body Site: thoracic spine Wound Type: pressure ulcer Burt Test: Does not Burt Pressure Ulcer Stage: Deep Tissue Injury Wound Thickness: Full Thickness Wound Length: 5.0 Wound Width: 2.0 Wound Depth: utd Percent of Wound Purple/Maroon: 100 Wound Drainage Amount: None Wound Drainage Odor: None/Absent Tissue Surrounding Wound: Erythemic Wound General Appearance: Reddened - maroon Wound Assessment #11: Wound Number: 11 Wound Present on Admission: Yes New Wound: No Status Change of Wound: No Wound Location Body Site Modif: left, lateral Wound Location Body Site: malleolus/ankle Wound Type: pressure ulcer Burt Test: Does not Burt Pressure Ulcer Stage: I Wound Length: 2.0 Wound Width: 2.0 Percent of Wound [place]/Red: 100 Wound Drainage Amount: None Wound Drainage Odor: None/Absent Tissue Surrounding Wound: Intact Wound General Appearance: Reddened Wound Assessment #12: Wound Number: 12 Wound Present on Admission: Yes New Wound: No Status Change of Wound: No Wound Location Body Site Modif: left Wound Location Body Site: heel Wound Type: pressure ulcer Burt Test: Does not Burt Pressure Ulcer Stage: Deep Tissue Injury - SDTI Wound Thickness: Full Thickness Wound Length: 3.0 Wound Width: 2.5 Wound Depth: utd Percent of Wound [place]/Red: 100 - DEEP Wound Drainage Amount: None Wound Drainage Odor: None/Absent Tissue Surrounding Wound: Intact Wound General Appearance: Reddened - DEEP red Wound Assessment #13: Wound Number: 13 Wound Present on Admission: Yes New Wound: No Status Change of Wound: No Wound Location Body Site Modif: right Wound Location Body Site: ear Wound Type: pressure ulcer Burt Test: Does not Burt Pressure Ulcer Stage: Deep Tissue Injury Wound Thickness: Full Thickness Wound Length: 4.5 Wound Width: 1.0 Wound Depth: utd Percent of Wound Purple/Maroon: 100 Wound Drainage Amount: None Wound Drainage Odor: None/Absent Tissue Surrounding Wound: Intact Wound General Appearance: Reddened - purple Wound Assessment #14: Wound Number: 14 Wound Present on Admission: Yes New Wound: No Status Change of Wound: No Wound Location Body Site Modif: left Wound Location Body Site: ear Wound Type: pressure ulcer Burt Test: Does not Burt Pressure Ulcer Stage: Deep Tissue Injury Wound Thickness: Full Thickness Wound Length: 4.0 Wound Width: 1.0 Wound Depth: utd Percent of Wound Purple/Maroon: 100 Wound Drainage Amount: None Wound Drainage Odor: None/Absent Tissue Surrounding Wound: Intact Wound General Appearance: Reddened - purple Wound Comment #1 Chemical burn with erosion on perineal area #2 Left ischial tuberosity DTI pressure ulcer #3 Right Ischial tuberosity DTI pressure ulcer #4 Sacrococcygeal DTI pressure ulcer #5 Left buttock DTI pressure ulcer #6 Right buttock DTI pressure ulcer #7 Right elbow DTI pressure ulcer #8 Left elbow DTI pressure ulcer #9 Mid thoracic spine DTI pressure ulcer #10 Right heel SDTI pressure ulcer #11 Left lateral malleolus stage I pressure ulcer #12 Left heel SDTI pressure ulcer #13 Right ear DTI pressure ulcer #14 Left ear DTI pressure ulcer Recommendation -Local wound care per protocol -Keep clean and dry -Turn and reposition -Offload both heels -Heel protector on both heels -Optimize nutrition -Low air loss mattress -Assess and f/u accordingly for any changes MOHINDER SORIANO RN Jan 15, 2018 23:14
[2018-01-16] VITALS (24 sets, daily range): BP systolic 77–142; BP diastolic 54–90
[2018-01-16 05:22] LABS: HEMOGLOBIN 10.5 G/DL (14.2-18.0); MEAN CORPUSCULAR VOLUME 91 FL (80-99); PLATELET COUNT 223 K/UL (150-450); RED BLOOD COUNT 3.41 M/UL (4.70-6.10); RED CELL DISTRIBUTION WIDTH 11.2 % (11.6-14.8); WHITE BLOOD COUNT 8.5 K/UL (4.8-10.8)
[2018-01-16 06:04] LABS: INR 1.2 (0.9-1.1)
[2018-01-16] MEDS: D5NS 1,000 ML IV SCH (06:09)
[2018-01-16] MEDS: NovoLOG Insulin Flexpen SUBQ SCH ×4 (06:12→20:31)
[2018-01-16 06:20] LABS: ALBUMIN 1.4 G/DL (3.4-5.0); ANION GAP 3 mmol/L (5-15); BLOOD UREA NITROGEN 34 mg/dL (7-18); CALCIUM 8.5 MG/DL (8.5-10.1); CARBON DIOXIDE 39 MMOL/L (21-32); CHLORIDE 98 MMOL/L (98-107); CREATININE 0.5 MG/DL (0.55-1.30); PHOSPHORUS 2.4 MG/DL (2.5-4.9); SODIUM 140 MMOL/L (136-145)
[2018-01-16 06:26] LABS: % IRON SATURATION 22 % (15-50); IRON 17 ug/dL (50-175); TOTAL IRON BINDING CAPACITY 78 ug/dL (250-450)
[2018-01-16 06:33] LABS: CREATINE KINASE 55 U/L (26-308); GAMMA GLUTAMYL TRANSPEPTIDASE 192 U/L (5-85)
[2018-01-16 06:49] LABS: ALANINE AMINOTRANSFERASE 70 U/L (12-78); ALBUMIN 1.4 G/DL (3.4-5.0); ALBUMIN/GLOBULIN RATIO 0.3 (1.0-2.7); ALKALINE PHOSPHATASE 485 U/L (46-116); ANION GAP 4 mmol/L (5-15); ASPARTATE AMINO TRANSFERASE 193 U/L (15-37); BILIRUBIN,TOTAL 0.6 MG/DL (0.2-1.0); BLOOD UREA NITROGEN 34 mg/dL (7-18); CALCIUM 8.4 MG/DL (8.5-10.1); CARBON DIOXIDE 39 MMOL/L (21-32); CHLORIDE 98 MMOL/L (98-107); CHOLESTEROL 55 MG/DL (< 200); CREATININE 0.5 MG/DL (0.55-1.30); FERRITIN 1482 NG/ML (8-388); HDL CHOLESTEROL 29 MG/DL (40-60); LACTATE DEHYDROGENASE 323 U/L (81-234); SODIUM 141 MMOL/L (136-145); TRIGLYCERIDES 38 MG/DL (30-150)
[2018-01-16] MEDS: Vitamin A&D Oint 2oz Tube TOPIC SCH ×2 (09:00→20:25)
[2018-01-16] MEDS: Cefepime HCl 2 GM in NS 110 ML IV SCH ×2 (09:29→21:00)
[2018-01-16] MEDS: Heparin 5000 units/ml inj SUBQ SCH ×2 (09:32→20:31)
--- NOTE | 2018-01-16 09:52 | Pulmonolgy Critical Care Note ---
Critical Care - Asmt/Plan Problems: (1) Acute respiratory failure (2) Pneumonia (3) Uncontrolled diabetes mellitus Respiratory: adjust tidal volume, adjust FIO2, CXR Cardiac: continue to monitor HR/BP Renal: F/U I&O, keep IV fluid, check electrolytes Infectious Disease: check cultures Gastrointestinal: continue feedings/current rate Endocrine: monitor blood sugar, check TSH, check HgA1C, continue sliding scale insulin Hematologic: transfuse if hgb<8.5 Neurologic: PRN Morphine, keep patient comfortable Time Spent (Minutes): 40 Notes Reviewed: cardio, renal Discussed with: nurses, consultants, family independence case managerfield care manager - Objective Last 24 Hour Vital Signs Date Time Temp Pulse Resp B/P (MAP) Pulse Ox O2 Delivery O2 Flow Rate FiO2 01/16/18 08:00 97.9 103 22 138/82 96 Nasal Cannula 3.0 97.9 01/16/18 08:00 103 01/16/18 07:39 Venturi Mask 14.0 55 01/16/18 07:38 97 Venturi Mask 14.0 55 01/16/18 07:00 99 22 142/90 95 Venturi Mask 14.0 55 01/16/18 06:00 97 22 134/83 94 Venturi Mask 14.0 55 01/16/18 05:00 99 26 137/85 97 Venturi Mask 14.0 55 01/16/18 04:00 97 01/16/18 04:00 98.8 100 24 137/90 97 Venturi Mask 55 98.8 01/16/18 03:00 98 26 115/71 92 Room Air 01/16/18 02:00 98 24 102/61 92 Room Air 01/16/18 01:00 96 25 109/65 92 Room Air 01/16/18 00:00 98.3 101 22 111/71 91 Room Air 98.3 01/16/18 00:00 101 01/15/18 23:00 101 22 111/74 92 Room Air 01/15/18 22:00 101 23 91/58 92 Room Air 01/15/18 21:00 103 28 105/61 94 Room Air 01/15/18 20:00 98.7 99 26 106/62 92 Room Air 98.7 01/15/18 20:00 107 01/15/18 19:02 Room Air 01/15/18 19:02 94 Room Air 01/15/18 19:00 100 28 113/68 95 Room Air 01/15/18 18:00 104 28 113/70 95 Venturi Mask 55 01/15/18 17:00 104 25 117/73 95 Venturi Mask 55 01/15/18 16:58 99 01/15/18 16:00 104 01/15/18 16:00 104 25 108/67 95 Venturi Mask 55 01/15/18 15:20 99 01/15/18 15:00 105 27 108/67 99 Venturi Mask 55 01/15/18 14:00 Venturi Mask 01/15/18 14:00 99 27 104/67 92 Venturi Mask 55 01/15/18 13:00 102 26 94/57 98 Venturi Mask 55 01/15/18 12:51 98 01/15/18 12:00 100 01/15/18 12:00 98.8 98 24 94/57 100 Venturi Mask 55 98.8 01/15/18 11:00 99 27 94/57 98 Venturi Mask 55 01/15/18 10:51 97 01/15/18 10:00 97 27 94/57 95 Venturi Mask 55 Status: awake Condition: critical Neck: full ROM Lungs: clear Heart: HR/BP stable, HR/BP unstable, regular Abdomen: non-tender, active bowel sounds Extremities: no C/C/E, edema Decubiti: location, stage Micro: Microbiology Date/Time Source Procedure Growth Status 01/14/18 18:50 Blood Blood Culture - Preliminary NO GROWTH AFTER 24 HOURS Resulted 01/14/18 18:46 Blood Blood Culture - Preliminary NO GROWTH AFTER 24 HOURS Resulted 01/15/18 02:50 Urine,Clean Catch Urine Culture - Preliminary NO GROWTH Resulted Accucheck: 190 Critical Care - Subjective ROS Limited/Unobtainable: No Condition: critical EKG Rhythm: Sinus Bradycardia FI02: 55 Vent Support Mode: BiLevel Sputum Amount: None I&O: Intake and Output 01/15/18 01/16/18 19:00 07:00 Intake Total 960 ml 1310 ml Output Total 975 ml 560 ml Balance -15 ml 750 ml Intake Oral 50 ml IV Total 960 ml 1260 ml Output Urine Total 975 ml 560 ml # Bowel Movements 3 CXR: no change Labs: Laboratory Tests Test 01/15/18 10:00 3/10/18 12:30 01/15/18 15:00 01/15/18 16:32 Opiates Screen Pending Urine Opiates Screen Negative (NEGATIVE) Oxycodone Level Pending Blood Methadone Screen Pending Blood Propoxyphene Screen Pending Blood Barbiturates Screen Pending Urine Barbiturates Screen Negative (NEGATIVE) Phencyclidine (PCP) Screen Pending Amphetamines Screen Pending Urine Amphetamines Screen Negative (NEGATIVE) Benzodiazepines Screen Pending Urine Benzodiazepines Screen Negative (NEGATIVE) Blood Cocaine/Metabolite Screen Pending Urine Cocaine Screen Positive (NEGATIVE) H Marijuana (THC) Screen Pending Urine Marijuana (THC) Screen Negative (NEGATIVE) Blood Drug Screen Comment Pending Lactic Acid Level 3.80 mmol/L (0.66-2.22) H 2.70 mmol/L (0.66-2.22) H Stool Occult Blood Pending Cryptococcus Antigen Pending Test 01/16/18 04:00 01/16/18 04:05 Erythrocyte Sedimentation Rate Pending Reticulocyte Count Pending Sodium Level 141 MMOL/L (136-145) Potassium Level 3.0 MMOL/L (3.5-5.1) L Chloride Level 98 MMOL/L (98-107) Carbon Dioxide Level 39 MMOL/L (21-32) H Anion Gap 4 mmol/L (5-15) L Blood Urea Nitrogen 34 mg/dL (7-18) H Creatinine 0.5 MG/DL (0.55-1.30) L Estimat Glomerular Filtration Rate > 60 mL/min (>60) Glucose Level 173 MG/DL (74-106) H Hemoglobin A1c 13.2 % (4.3-6.0) H Uric Acid 4.6 MG/DL (2.6-7.2) Calcium Level 8.4 MG/DL (8.5-10.1) L Phosphorus Level 2.4 MG/DL (2.5-4.9) L Magnesium Level 1.7 MG/DL (1.8-2.4) L Iron Level 17 ug/dL (50-175) L Total Iron Binding Capacity 78 ug/dL (250-450) L Percent Iron Saturation 22 % (15-50) Unsaturated Iron Binding 61 ug/dL (112-346) L Ferritin 1482 NG/ML (8-388) H Total Bilirubin 0.6 MG/DL (0.2-1.0) Gamma Glutamyl Transpeptidase 192 U/L (5-85) H Aspartate Amino Transf (AST/SGOT) 193 U/L (15-37) H Alanine Aminotransferase (ALT/SGPT) 70 U/L (12-78) Alkaline Phosphatase 485 U/L (46-116) H Lactate Dehydrogenase 323 U/L (81-234) H Total Creatine Kinase 55 U/L (26-308) Troponin I 0.271 ng/mL (0.000-0.056) Pro-B-Type Natriuretic Peptide 2512 pg/mL (0-125) H Total Protein 6.2 G/DL (6.4-8.2) L Albumin 1.4 G/DL (3.4-5.0) L Globulin 4.8 g/dL Albumin/Globulin Ratio 0.3 (1.0-2.7) L Triglycerides Level 38 MG/DL (30-150) Cholesterol Level 55 MG/DL (< 200) LDL Cholesterol 26 mg/dL (<100) HDL Cholesterol 29 MG/DL (40-60) L Cholesterol/HDL Ratio 1.9 (3.3-4.4) L Vitamin B12 Level > 2000 PG/ML (193-986) H Folate 9.0 NG/ML (8.6-58.9) Thyroid Stimulating Hormone (TSH) 1.276 uiU/mL (0.358-3.740) White Blood Count 8.5 K/UL (4.8-10.8) Red Blood Count 3.41 M/UL (4.70-6.10) L Hemoglobin 10.5 G/DL (14.2-18.0) L Hematocrit 31.0 % (42.0-52.0) L Mean Corpuscular Volume 91 FL (80-99) Mean Corpuscular Hemoglobin 30.7 PG (27.0-31.0) Mean Corpuscular Hemoglobin Concent 33.7 G/DL (32.0-36.0) Red Cell Distribution Width 11.2 % (11.6-14.8) L Platelet Count 223 K/UL (150-450) Mean Platelet Volume 8.3 FL (6.5-10.1) Neutrophils (%) (Auto) % (45.0-75.0) Lymphocytes (%) (Auto) % (20.0-45.0) Monocytes (%) (Auto) % (1.0-10.0) Eosinophils (%) (Auto) % (0.0-3.0) Basophils (%) (Auto) % (0.0-2.0) Differential Total Cells Counted 100 Neutrophils % (Manual) 88 % (45-75) H Lymphocytes % (Manual) 10 % (20-45) L Monocytes % (Manual) 2 % (1-10) Eosinophils % (Manual) 0 % (0-3) Basophils % (Manual) 0 % (0-2) Band Neutrophils 0 % (0-8) Platelet Estimate Adequate Platelet Morphology Normal Hypochromasia 1+ Prothrombin Time 12.6 SEC (9.30-11.50) H Prothromb Time International Ratio 1.2 (0.9-1.1) H Activated Partial Thromboplast Time 37 SEC (23-33) H THANH LEVI Jan 16, 2018 09:52
[2018-01-16] MEDS: Vancomycin 1gm in D5W 275ml IVPB SCH ×2 (10:00→20:25)
[2018-01-16] MEDS ORDERED: Potassium Chloride 40 MEQ in Sodium Chloride 500ML 550 ML IVPB ONE (11:30)
--- NOTE | 2018-01-16 15:58 | Nephrology Progress Note ---
Assessment/Plan Problem List: (1) Urinary retention (2) Hypotension Assessment Hypotension- Urinary retention Renal failure- Proteinuria Respiratory distress Pneumonia DMM OOC Anemia HypoAlbuminemia CHF elevated troponin I Plan Optimize cardiac and pulm status 2D eco monitor renal parameters and lytes per orders Subjective ROS Limited/Unobtainable: Yes Objective Objective Last 24 Hour Vital Signs Date Time Temp Pulse Resp B/P (MAP) Pulse Ox O2 Delivery O2 Flow Rate FiO2 01/16/18 15:00 103 19 108/68 96 Nasal Cannula 2.0 01/16/18 14:00 102 20 111/65 100 Nasal Cannula 2.0 01/16/18 13:00 106 21 132/77 100 Nasal Cannula 2.0 01/16/18 12:00 100 01/16/18 12:00 98.1 102 20 122/83 100 Nasal Cannula 2.0 98.1 01/16/18 11:00 104 20 122/68 91 Nasal Cannula 4.0 01/16/18 10:00 101 20 134/77 94 Nasal Cannula 4.0 01/16/18 09:00 99 22 136/79 92 Nasal Cannula 4.0 01/16/18 08:00 97.9 103 22 138/82 96 Nasal Cannula 3.0 97.9 01/16/18 08:00 103 01/16/18 07:39 Venturi Mask 14.0 55 01/16/18 07:38 97 Venturi Mask 14.0 55 01/16/18 07:00 99 22 142/90 95 Venturi Mask 14.0 55 01/16/18 06:00 97 22 134/83 94 Venturi Mask 14.0 55 01/16/18 05:00 99 26 137/85 97 Venturi Mask 14.0 55 01/16/18 04:00 97 01/16/18 04:00 98.8 100 24 137/90 97 Venturi Mask 55 98.8 01/16/18 03:00 98 26 115/71 92 Room Air 01/16/18 02:00 98 24 102/61 92 Room Air 01/16/18 01:00 96 25 109/65 92 Room Air 01/16/18 00:00 98.3 101 22 111/71 91 Room Air 98.3 01/16/18 00:00 101 01/15/18 23:00 101 22 111/74 92 Room Air 01/15/18 22:00 101 23 91/58 92 Room Air 01/15/18 21:00 103 28 105/61 94 Room Air 01/15/18 20:00 98.7 99 26 106/62 92 Room Air 98.7 01/15/18 20:00 107 01/15/18 19:02 Room Air 01/15/18 19:02 94 Room Air 01/15/18 19:00 100 28 113/68 95 Room Air 01/15/18 18:00 104 28 113/70 95 Venturi Mask 55 01/15/18 17:00 104 25 117/73 95 Venturi Mask 55 01/15/18 16:58 99 01/15/18 16:00 104 01/15/18 16:00 104 25 108/67 95 Venturi Mask 55 Intake and Output 01/15/18 01/16/18 19:00 07:00 Intake Total 960 ml 1310 ml Output Total 975 ml 560 ml Balance -15 ml 750 ml Intake Oral 50 ml IV Total 960 ml 1260 ml Output Urine Total 975 ml 560 ml # Bowel Movements 3 Laboratory Tests 01/15/18 16:32: Lactic Acid Level 2.70H, Cryptococcus Antigen [Pending] 01/16/18 04:00: Erythrocyte Sedimentation Rate 115H, Reticulocyte Count 0.4, Sodium Level 141, Potassium Level 3.0L, Chloride Level 98, Carbon Dioxide Level 39H, Anion Gap 4L , Blood Urea Nitrogen 34H, Creatinine 0.5L, Estimat Glomerular Filtration Rate > 60, Glucose Level 173H, Hemoglobin A1c 13.2H, Uric Acid 4.6, Calcium Level 8.4L, Phosphorus Level 2.4L, Magnesium Level 1.7L, Iron Level 17L, Total Iron Binding Capacity 78L, Percent Iron Saturation 22, Unsaturated Iron Binding 61L, Ferritin 1482H, Total Bilirubin 0.6, Gamma Glutamyl Transpeptidase 192H, Aspartate Amino Transf (AST/SGOT) 193H, Alanine Aminotransferase (ALT/SGPT) 70, Alkaline Phosphatase 485H, Lactate Dehydrogenase 323H, Total Creatine Kinase 55 , Troponin I 0.271H, Pro-B-Type Natriuretic Peptide 2512H, Total Protein 6.2L, Albumin 1.4L, Globulin 4.8, Albumin/Globulin Ratio 0.3L, Triglycerides Level 38 , Cholesterol Level 55, LDL Cholesterol 26, HDL Cholesterol 29L, Cholesterol/ HDL Ratio 1.9L, Vitamin B12 Level > 2000H, Folate 9.0, Thyroid Stimulating Hormone (TSH) 1.276 01/16/18 04:05: White Blood Count 8.5, Red Blood Count 3.41L, Hemoglobin 10.5L, Hematocrit 31.0L , Mean Corpuscular Volume 91, Mean Corpuscular Hemoglobin 30.7, Mean Corpuscular Hemoglobin Concent 33.7, Red Cell Distribution Width 11.2L, Platelet Count 223, Mean Platelet Volume 8.3, Neutrophils (%) (Auto) , Lymphocytes (%) (Auto) , Monocytes (%) (Auto) , Eosinophils (%) (Auto) , Basophils (%) (Auto) , Differential Total Cells Counted 100, Neutrophils % ( Manual) 88H, Lymphocytes % (Manual) 10L, Monocytes % (Manual) 2, Eosinophils % ( Manual) 0, Basophils % (Manual) 0, Band Neutrophils 0, Platelet Estimate Adequate, Platelet Morphology Normal, Hypochromasia 1+, Prothrombin Time 12.6H, Prothromb Time International Ratio 1.2H, Activated Partial Thromboplast Time 37H 01/16/18 08:00: Lactic Acid Level 1.30 Height (Feet): 5 Height (Inches): 9.00 Weight (Pounds): 125 General Appearance: no apparent distress Objective no change MARLY KENNEDY Jan 16, 2018 15:58
--- NOTE | 2018-01-16 16:30 | Cardiology Report ---
APPROVED REPORT EKG Measurement Heart [id number] Sinus tachycardia Incomplete right bundle branch block Borderline ECG
[2018-01-16] MEDS: Azithromycin 500 MG in D5W 275 ML IV SCH (20:24)
[2018-01-16] MEDS: LORazepam Inj 2mg/ml 1ml IV PRN (21:45)
[2018-01-17] VITALS: BP 74/51
[2018-01-17] MEDS ORDERED: Flumazenil 1mg/10ml Inj IV ONE (00:30)
[2018-01-17] MEDS ORDERED: Flumazenil 0.1mg/ml 5ml Inj IV ONE (00:36)
[2018-01-17 01:00] VITALS: BP 105/68
[2018-01-17 02:00] VITALS: BP 98/67
[2018-01-17 02:45] VITALS: BP 65/35
[2018-01-17] MEDS ORDERED: 1/2 NS 1000ml IV ONE (05:08)
[2018-01-17] MEDS ORDERED: Tubing IV Secondary IV ONE ×2 (05:08)
[2018-01-17] MEDS ORDERED: D5NS 1000ml IV ONE (05:08)
[2018-01-17] MEDS ORDERED: Etomidate 40mg/20ml Inj IV ONE (05:08)
[2018-01-17] MEDS ORDERED: NS 275ml ONE ×2 (05:08)
--- NOTE | 2018-01-17 05:49 | Emergency Room Report ---
History of Present Illness General Chief Complaint: Dyspnea/Respdistress Source: Medical Record Present Illness HPI This is a 57-year-old male admitted to the hospital for substance abuse, none STEMI, pneumonia and sepsis. He was admitted to the ICU. I was called to evaluate the patient for respiratory distress. Patient was placed on BiPAP and mental status worsening. Also with increased blistering distress and work of breathing. On my arrival patient is obtunded on the BiPAP. Because of his work of breathing and wrist area status, I proceeded to intubate the patient without any difficulty. His blood pressure was low and he referred was started. Therefore I place a right internal jugular central line. Just as I finish, heart rate trended down became asystolic pretty quickly. CPR was initiated. He received a total of 3 rounds of epinephrine with spontaneous response heart rate. He was placed on the ventilator and bodyaches and Levothroid continue. He coded a second time and also had spontaneous return of pulse. Shortly after that he coded again. After the second code his sisters are in the ICU. They witnessed the third code. I broached the DO NOT RESUSCITATE status with his sisters. They went to discuss it with the third sister who is not here at the moment. The 2 sisters were very reasonable and wanted to make the patient DO NOT RESUSCITATE. Shortly afterward he became asystolic and and pronounced at 5:[address] Leo to let him know. Allergies: Coded Allergies: No Known Allergies (Unverified , 01/14/18) Patient History Past Medical History: see triage record, old chart reviewed Past Surgical History: other Pertinent Family History: none Social History: Reports: smoking, drug use Immunizations: other Reviewed Nursing Documentation: PMH: Agreed, PSxH: Agreed Nursing Documentation-PMH Past Medical History: No History, Except For Hx Hypertension: Yes Hx Diabetes: Yes Hx Cancer: No Hx Gastrointestinal Problems: No Hx Neurological Problems: No Review of Systems Respiratory: Reports: shortness of breath All Other Systems: limited - secondary to mental stasus Physical Exam Vital Signs Date Time Temp Pulse Resp B/P (MAP) Pulse Ox O2 Delivery O2 Flow Rate FiO2 01/14/18 17:52 98.1 78 18 149/86 95 Nasal Cannula 4.0 98.1 01/14/18 23:10 50 Sp02 EP Interpretation: abnormal General Appearance: severe distress, Stupor ENT: dry mucus membranes Neck: full range of motion Respiratory: decreased breath sounds, accessory muscle use, crackles Cardiovascular #1: regular rate, rhythm Gastrointestinal: soft Musculoskeletal: normal inspection Neurologic: other - moan to sternal rub Skin: pallor Lymphatic: normal inspection Procedures Critical Care Time Critical Care Time Critical care is mandated in this patient who presented with septic shock. Patient require my urgent intervention to attenuate the risks of metabolic collapse which may lead to cardiovascular collapse and . Critical care time is 35 minutes excluding any reportable procedure. Critical care time included evaluation, multiple reevaluation, looking at old charts, interpreting laboratory and diagnostic data, discussing case with patient and family and consultants, and charting. Central Line Central Line : Consent: Verbal Maximal Sterile Barrier Tech: yes cap, yes mask, yes sterile gown, yes sterile gloves, yes large sterile sheet, yes hand hygiene, yes chlorhexidine prep Central Line Postion: internal jugular (R) Complications: none Central Line Post Position: sutured, good blood return, position confirmed w / CXR Attempts: One Patient Tolerated: Well Complications: None CPR/Code Blue CPR/Code Blue Narrative preceded 3 code sheets for full list of medication given Intubation Intubation : Consent: Emergent Intubation Method: orotracheal Tube Size (cm): 7.5 Medications: Etomidate, Succinylcholine Breath Sounds after Intubation: equal Intubation Complications: no complications Post Intubation Xray: Yes Progress/Xray Impression: worsening pneumonia, endotracheal tube in good position. No pneumothorax. Attempts: One Patient Tolerated: Well Complications: None Medical Decision Making Diagnostic Impression: Primary Impression: CHF exacerbation Additional Impressions: Substance abuse NSTEMI (non-ST elevated myocardial infarction) Pneumonia Acute respiratory failure Septic shock Cardiac arrest Chest X-Ray Diagnostic Results Chest X-Ray Diagnostic Results : Chest X-Ray Ordered: Yes # of Views/Limited/Complete: 1 View Indication: Shortness of Breath EP Interpretation: Yes Interpretation: other - worsening multi lobar infiltrates. ETT in good position. TLC in good position. no ptx. Impression: Other - pneumonia, s/p ETT and TLC Electronically Signed by: Maximo Ladd MD Last Vital Signs Date Time Temp Pulse Resp B/P (MAP) Pulse Ox O2 Delivery O2 Flow Rate FiO2 01/17/18 05:27 80 15 100 01/17/18 02:32 89 Bi-pap 01/17/18 02:00 98/67 01/17/18 00:00 98.2 98.2 01/16/18 21:00 2.0 Status: worsened Disposition: ADMITTED INPATIENT Condition: Critical Referrals: [facility],REFERRING (PCP) MAXIMO LADD M.D. Jan 17, 2018 05:49
[2018-01-17] MEDS: NovoLOG Insulin Flexpen SUBQ SCH (06:30)
--- NOTE | 2018-01-17 09:27 | Cardiology Report ---
APPROVED REPORT EXAM: Two-dimensional and M-mode echocardiogram with Doppler and color Doppler. INDICATION Congestive Heart Failure M-Mode DIMENSIONS IVSd1.1 (0.7-1.1cm)Left Atrium (MM)3.2 (1.6-4.0cm) LVDd4.8 (3.5-5.6cm)Aortic Root3.2 (2.0-3.7cm) PWd1.3 (0.7-1.1cm)Aortic Cusp Exc.1.9 (1.5-2.0cm) LVDs3.7 (2.5-4.0cm) PWs1.5 cm Technically difficult study due to poor acoustical windows. Normal left ventricular chamber size, systolic function and wall motion. Basal septal and basal inferior akinesis. Left ventricular ejection fraction estimated to be 55-60 %. No evidence of left ventricular hypertrophy. No evidence of pericardial or pleural effusion. Mild bi-atrial enlargement by 2D. Focal aortic valve sclerosis with adequate cusp excursion. Thickened mitral valve leaflets with normal excursion. Mild mitral annulus and aortic root calcification. Pulmonic valve not well visualized. Normal tricuspid valve structure. IVC dilated at 2.8 cm non-collapsible with respiration indicate increased RA pressure. A color flow and spectral Doppler study was performed and revealed: No aortic regurgitation. No mitral regurgitation. Mitral diastolic velocities suggest reduced left ventricular relaxation c/w diastolic dysfunction grade 1. Trace tricuspid regurgitation. Tricuspid systolic velocities suggests peak right ventricular systolic pressure of 24 mmHg
--- NOTE | 2018-01-17 10:00 | Diagnostic Imaging Report ---
Clinical Indication: Shortness of breath, myocardial infarction, labored breathing, pneumonia, sepsis Technique: IV administration nonionic contrast. Spiral acquisition obtained through the chest. Multiplanar reconstructions generated. Total dose length product 404.2 mGycm. CTDIvol(s) 11.95 mGy. Dose reduction achieved using automated exposure control Comparison: none Findings: There is image degradation due to respiratory motion artifact. Large cavitary lesion with multiple septations and thick somewhat irregular mccann is seen in the superior aspect of the left lower lobe. This measures 11.3 x 5.1 x 14 cm craniocaudad. More cephalad to this, there is a large confluent opacity with multiple cystic spaces occupying much of the posterior inferior left lower lobe. Reticular opacities are seen in most of the remaining left lower lobe. Reticular and confluent opacities as well as some honeycombing are seen in much of the posterior left upper lobe. Reticular, nodular, and confluent opacities are seen occupying most of the right middle lobe and right lower lobe, and the inferior and posterior right upper lobe. There is equivocal slight hyperinflation of the aerated portions of the right upper lobe. Small subpleural cystic spaces are seen in the left upper lobe. Extensive debris is seen within the left mainstem bronchus and lower lobe bronchi, occluding or nearly completely occluding them. There are are small bilateral pleural effusions, slightly larger on the right than on the left. There is massive mediastinal and left hilar lymphadenopathy. The confluent left hilar nodes severely narrow the left main and lobar pulmonary arteries almost to the point of occlusion. Nodes are confluent and therefore individual nodes are difficult to measure, but one large aggregate measures at least 7 x 3.3 cm. These are diffusely hypoattenuating with occasional slight enhancing rims, indicative of central necrosis. Mediastinal lymphadenopathy is mostly left paratracheal, but there is also significant prevascular space lymphadenopathy. A subcentimeter low-attenuation lesion is seen in the left thyroid lower pole. The heart size is normal. No pericardial effusion. There is anasarca, with generalized edema of the subcutaneous fat in addition to the pleural fluid. The esophagus is diffusely distended with debris. No definite downstream obstructive lesion is demonstrated. The bones are unremarkable. The upper abdomen demonstrates a small amount of ascites fluid Impression: Large left lower lobe cavitary lesion. This could be inflammatory or neoplastic, although the presence of massive mediastinal hilar lymphadenopathy suggests the latter Extensive pulmonary parenchymal disease elsewhere, as described. Confluent opacities with central cystic spaces in the left lower lobe suggests scarring with central saccular bronchiectasis, and opacities bilateral upper lobes have a honeycomb appearance suggestive of chronic fibrotic change. However, the right lower lobe, right middle lobe opacities and the opacities elsewhere in the left lung are consistent with acute infiltrates or possibly edema or combination of both Extensive mediastinal and hilar lymphadenopathy. Size, presence of significant mass effect, and central necrosis suggestive this is most likely neoplastic, although inflammatory/infectious lymphadenopathy also a possibility Near occlusion of the left lung pulmonary arteries, due to the above adenopathy Obstructed due to debris within the left mainstem and lower lobe segmental bronchi Evidence of anasarca Distended debris-filled esophagus, no definite downstream obstructive process. Nonetheless, endoscopic correlation should be considered Ascites The CT scanner at [facility] is accredited by the [employer] and the scans are performed using protocols designed to limit radiation exposure to as low as reasonably achievable to attain images of sufficient resolution adequate for diagnostic evaluation.
--- NOTE | 2018-01-17 12:16 | Diagnostic Imaging Report ---
Indication: Post intubation Technique: One view of the chest Comparison: 01/15/2018 Findings: Interim marked worsening of consolidation in the right lung, with dense consolidation in the upper to mid and lower to mid lung, reticular opacities seen elsewhere. There is increasing consolidation of the left lung base with central cystic opacities. Large left lung cavitating lesion is less evident on plain radiograph than on recent CT. Pleural spaces are grossly clear although the right costophrenic angle is cut off exam. Interim endotracheal intubation, endotracheal tube tip projecting across the 4 cm above the nic. Interim placement right jugular central venous catheter, tip projecting at level of the cavoatrial junction. No gross pneumothorax. Impression: Over 2 days, interim marked worsening of parenchymal disease, particularly on the right. Satisfactory endotracheal intubation Satisfactory right jugular central venous catheter placement, no radiographically evident complication
--- NOTE | 2018-01-17 15:35 | Diagnostic Imaging Report ---
Indication: Abdominal pain, abnormal liver function test Technique: James-scale and duplex images of the upper abdomen were obtained Comparison: none Findings: Gallbladder demonstrates a small amount of sludge. No gallstones. No gallbladder wall thickening. Sonographic Grace's sign is negative. Common bile duct measures 3 mm in diameter. No intrahepatic biliary ductal dilatation. Liver demonstrates normal echogenicity, no focal abnormality. Portal vein and hepatic veins are patent. Pancreas is unremarkable. Spleen is unremarkable. Left kidney measures 11.1 cm in length. Right kidney measures 11.6 cm length. Both kidneys demonstrate slightly increased echogenicity. Both kidneys demonstrate mild fullness to the renal collecting systems but no ramana hydronephrosis. No focal abnormality . Non-aneurysmal abdominal aorta . Trace fluid is seen in Morison's pouch. There is a small right pleural effusion demonstrated. Impression: Gallbladder sludge. Negative for gallstones or dilated ducts Trace intraperitoneal fluid in Morison's pouch, etiology not demonstrated Small right pleural effusion Increased renal echogenicity bilaterally, may indicate medical renal disease
--- NOTE | 2018-01-18 07:44 | Discharge Summary ---
Discharge Summary Hospital Course Date of Admission Jan 14, 2018 at 19:55 Date of Discharge Jan 17, 2018 at 05:09 Admitting Diagnosis CHF EXACERBATION HPI Mack Bates is a 57 year old male who was admitted on Jan 14, 2018 at 19:55 for Congestive Heart Failure Exacerbation Hospital Course summary #[id number] Discharge Discharge Disposition Patient was discharged to Discharge Diagnoses: Discharge Instructions Discharge Instructions Special Instructions I have been assigned to complete a D/C Summary on this account. I was not involved in the patient management Riccardo RayaTrinidad thomson NP Jan 18, 2018 07:44
--- NOTE | 2018-01-19 05:45 | Discharge Summary 2 SIG ---
SUMMARY DATE OF ADMISSION: 01/14/2018 DATE OF DISCHARGE: 01/17/2018 REASON FOR ADMISSION: 57-year-old male with history of diabetes, hypertension, and substance abuse, presented to emergency room after increased generalized weakness and shortness of breath. The patient noted difficulties with respiration. He was started on supplemental oxygen by paramedics. The patient had a crack pipe near him, which was noted by paramedics when they picked him up. The patient was placed initially on 100% nonrebreathing mask and was tachypneic, then placed subsequently on the BiPAP. Laboratory workup revealed elevated troponin -0.811 and pro BNP- 4234. EKG showed sinus tachycardia with incomplete RBBB, but no acute ischemic changes. Chest x-ray showed patchy bilateral pulmonary infiltrates. No leukocytosis. No fever. Lactic acid -2.3. BUN -52, creatinine- 1.3, glucose -506, phosphorus -5.4, and magnesium - 1.7. The patient received antibiotics for possible pneumonia, aspirin, and IV Lasix. The patient was admitted to ICU for further management. ADMITTING DIAGNOSES: 1. Acute respiratory failure, requiring BiPAP. 2. Pneumonia 3. CHF 4. Elevated troponin, 5. Possible non-STEMI. 6. Diabetes mellitus, out of control. 7. Substance abuse. 8. Renal failure. HOSPITAL COURSE: The patient admitted to ICU. The patient was on the BiPAP. The patient was followed by ABG and chest x-ray, unable to be weaned from the BiPAP. The patient was on empiric antibiotics. ID and Nephrology consults were requested. The patient was on empiric antibiotic as directed by ID specialist. Blood cultures were negative. Urine cultures was negative. Sputum culture revealed Staph species, Enterobacter, Klebsiella. Urine-tox screen was positive for cocaine and phencyclidine. HIV test was negative. CT of the chest revealed large left lower lobe cavitary lesion, inflammatory versus neoplastic, extensive pulmonary parenchymal disease elsewhere, extensive mediastinal and hilar lymphadenopathy. Size, presence of significant mass effect, and central necrosis was suggestive that this was most likely neoplastic, although inflammatory/infectious lymphadenopathy was also a possibility Near occlusion of the left lung pulmonary artery. The patient was placed on respiratory isolation to rule out TB. Fungal serology was ordered along with PPD, TB-SPOT test , TB by PCR, and sputum AFB x3. Sputum for AFB x 2 (smear) - negative. Serial troponin monitored, trending down. Echocardiogram revealed ejection fraction of 55% to 60% with basal septal and basal inferior akinesis. No mitral regurgitation. Right ventricular systolic pressure of 24 and diastolic dysfunction grade 1. The patient noted to have elevated AST -193 with normal ALT -70. Abdominal ultrasound revealed gallbladder sludge, but no gallstones, no dilated ducts, increased renal echogenicity probably consistent with medical renal disease. Renal parameters were closely monitored, electrolytes were corrected as needed, nephrotoxics were avoided. Blood sugar was managed with sliding scale of insulin. Hemoglobin A1c -13.2, not at goal. Wound care was provided as per wound nurse recommendations. The patient's condition was not improving. On 01/17/2018 patient was noted to be in respiratory distress: on BiPAP with worsening mental status and increased work of breathing. He was obtunded and required urgent intubation by ED physician. Patient was hypotensive and required pressors for hemodynamic support. Central line was placed, and patient subsequently was placed on Levophed. When central line was placed, the patient went to asystole. CPR was initiated and was successful. Patient subsequently coded the second time. He had spontaneous return of the circulation. Shortly after, he coded the third time. His sisters were in the ICU. Emergency room doctor approached them with DNR status to discuss , after discussion with the third sister, they decided to make the patient DNR. Shortly afterwards, the patient went to asystole and . He was pronounced at 05:09 a.m. on 01/17/2018. CAUSE OF : Cardiopulmonary arrest. FINAL DIAGNOSES: 1. Acute respiratory failure, requiring BiPAP and then subsequently intubation. 2. Status post cardiopulmonary arrest x3. 3. Sepsis ( present on admission , with evidence of infection/PNA, tachypnea, elevated lactic acid). 4. Septic shock. 5. Pneumonia. 6. Large left lobe cavitary lesion (inflammatory versus neoplastic) 7. Elevated troponin, 8. Possibly non-STEMI. 9. Substance abuse. 10. Lactic acidosis. 11. CHF 12. Weight loss. 13. Diabetes, out of control. 14. Transaminitis. 15. Left and Right ischial tuberosity deep tissue injuries (DTI), present on admission 16. Sacrococcygeal DTI present on admission 17. Left and Right buttock DTI present on admission 18. Right and left ear DTI present on admission Ariana Leo M.D. I have been assigned to dictate discharge summary on this account and I was not involved in the patient's management. Trinidad Rayaalix NLaura DR: GEOVANY JOB#: [id number] CC: CINTIA
== END 2018-01-17 05:09 | disposition expired | DRG 720 ==
LOC: EDBD 18:03 → EMR 18:35 → ICU 19:55 → EDBEDREQ 21:36 → ICU 01-15 08:00
PROC: 5A09357 Assistance with Respiratory Ventilation, Less than 24 Consecutive Hours, Continuous Positive Airway Pressure (ICD-10-PCS; principal; 2018-01-17)
PROC: 05HM33Z Insertion of Infusion Device into Right Internal Jugular Vein, Percutaneous Approach (ICD-10-PCS; 2018-01-17)
PROC: 3E033XZ Introduction of Vasopressor into Peripheral Vein, Percutaneous Approach (ICD-10-PCS; 2018-01-17)
PROC: 5A12012 Performance of Cardiac Output, Single, Manual (ICD-10-PCS; 2018-01-17)
DX: A41.9 Sepsis, unspecified organism (principal); J96.00 Acute respiratory failure, unspecified whether with hypoxia or hypercapnia; I21.4 Non-ST elevation (NSTEMI) myocardial infarction; R65.21 Severe sepsis with septic shock; J18.9 Pneumonia, unspecified organism; I11.0 Hypertensive heart disease with heart failure; I50.9 Heart failure, unspecified; Z66 Do not resuscitate; D64.9 Anemia, unspecified; S00.431A Contusion of right ear, initial encounter; E88.09 Other disorders of plasma-protein metabolism, not elsewhere classified; E11.65 Type 2 diabetes mellitus with hyperglycemia; R33.9 Retention of urine, unspecified; R74.0 Nonspecific elevation of levels of transaminase and lactic acid dehydrogenase [LDH]; R91.1 Solitary pulmonary nodule; F19.10 Other psychoactive substance abuse, uncomplicated; R63.4 Abnormal weight loss; S00.432A Contusion of left ear, initial encounter; S30.0XXA Contusion of lower back and pelvis, initial encounter; S70.02XA Contusion of left hip, initial encounter; S70.01XA Contusion of right hip, initial encounter; X58.XXXA Exposure to other specified factors, initial encounter; Y92.9 Unspecified place or not applicable
CPT/HCPCS: 36415; 36600; 71045; 71260; 76700; 76705; 80048; 80053; 80061; 80069; 80076; 80301; 80307; 81001; 82270; 82378; 82550; 82553; 82607; 82728; 82746; 82803; 82962; 82977; 83036; 83540; 83550; 83605; 83615; 83735; 83880; 84100; 84443; 84484; 84550; 85007; 85025; 85044; 85060; 85610; 85651; 85730; 86140; 86171; 86580; 86612; 86703; 87040; 87070; 87081; 87086; 87116; 87181; 87205; 87449; 87556; 92950; 93005; 93306; 93970; 94002; 94640; 94660; 94760; 99291; J1815; J7620; J8499; S0077